=== PATIENT | male | born 1960 | race Caucasian/White ===

== ENCOUNTER 2020-01-26 06:34 | Day surgery (SDC) | payer MEDICAID ==
[2020-01-26] MEDS ORDERED: Midazolam 1 MG/ML 2 ML SDV ONE (07:26)
[2020-01-26] MEDS ORDERED: Propofol 200 MG/20 ML SDV ONE (07:26)
[2020-01-26] MEDS ORDERED: fentaNYL 100 MCG/2 ML SDV ONE (07:26)
[2020-01-26] MEDS ORDERED: Sodium Chloride 0.9% 1,000 ML IV SCH (07:30)
[2020-01-26 09:26] VITALS: BP 123/85; PULSE 89
--- NOTE | 2020-01-26 12:54 | PROC ---
DATE OF PROCEDURE: SURGEON: Al García MD INDICATIONS: Hever is a 59-year-old male who has been having abdominal pain to the point where he can hardly function. It is all the time. Often worse when he eats. It is across the entire abdomen. He comes in for an esophageal gastroduodenoscopy. The risks and benefits were explained, and the patient was taken to the OR. PROCEDURE IN DETAIL: Anesthesia was given by nurse computer support specialist. The Olympus 180 scope was used and was placed into the pharynx without difficulty and advanced under direct vision into the body of the stomach. The pylorus was identified and advanced into the 1st and 2nd part of the duodenum. Upon retraction of the tube, noted no duodenal erythema. The tube was brought back into the stomach, which revealed no abnormality. The tube was retroflexed into the fundus, which was unremarkable. Air was withdrawn from the stomach. The GE junction was identified. There was a hiatal hernia noted. The remainder of the esophagus was unremarkable and the vocal cords moved symmetrically. No obvious pathology noted. The tube was removed. The patient tolerated the procedure well. PREOPERATIVE DIAGNOSIS: Abdominal pain. POSTOPERATIVE DIAGNOSIS: Normal esophagus, stomach, small intestine, and vocal cords. No obvious pathology was noted throughout the entire evaluation. Other sources for the abdominal pain need to be sought. Al García MD /[id number]
== END 2020-01-26 09:30 | disposition home or self-care (01) ==
LOC: JP.SDS 06:34
PROVIDERS: ATTEND Internal Medicine
DX: R10.13 Epigastric pain (principal); K44.9 Diaphragmatic hernia without obstruction or gangrene; G47.33 Obstructive sleep apnea (adult) (pediatric); I12.9 Hypertensive chronic kidney disease with stage 1 through stage 4 chronic kidney disease, or unspecified chronic kidney disease; N18.9 Chronic kidney disease, unspecified
CPT/HCPCS: 43235; J2250; J2704; J3010; J7030

== ENCOUNTER 2023-03-27 11:25 | Inpatient (IN) | payer MEDICAID ==
[2023-03-27] MEDS: Sodium Chloride 0.9% 1,000 ML IV ONE ×2 (11:45→12:56)
[2023-03-27] MEDS: Sodium Chloride 0.9% 10 ML Syringe FLUSH PRN (11:52)
[2023-03-27 12:00] LABS: BASOPHILS PERCENT AUTO 0.2 % (0.1-1.3); EOSINOPHILS PERCENT AUTO 0.2 % (0.0-5.4); HEMATOCRIT 34.6 % (38.4-49.7); HEMOGLOBIN 11.4 g/dL (12.9-16.9); IMMATURE GRAN ABSOLUTE AUTO 0.07 K/uL (0.00-0.23); IMMATURE GRAN PERCENT AUTO 0.6 % (0.0-0.7); LYMPHOCYTES ABSOLUTE AUTO 0.53 K/uL (0.8-3.3); LYMPHOCYTES PERCENT AUTO 4.9 % (11.4-47.7); MEAN CORPUSCULAR HGB CONC 32.9 g/dL (31.6-35.5); MEAN CORPUSCULAR VOLUME 81.8 fL (81.4-99.0); MONOCYTES ABSOLUTE AUTO 0.05 K/uL (0.20-0.90); MONOCYTES PERCENT AUTO 0.5 % (3.3-12.6); NEUTROPHILS PERCENT AUTO 93.6 % (40.0-78.1); PLATELET COUNT,PLT 328 K/uL (130-375); RED BLOOD CELL COUNT 4.23 M/uL (4.14-5.76); WHITE BLOOD CELL COUNT,WBC 10.8 K/uL (3.2-11.0)
[2023-03-27 12:06] LABS: BASOPHILS ABSOLUTE AUTO 0.02 K/uL (0.00-0.10); EOSINOPHILS ABSOLUTE AUTO 0.02 K/uL (0.00-0.40)
[2023-03-27 12:22] LABS: A/G RATIO 0.3 (1.2-2.2); ALANINE AMINOTRANSFERASE,ALT 15 U/L (12-78); ALBUMIN 1.6 g/dL (3.4-5.0); ALKALINE PHOSPHATASE 36 U/L (46-116); ASPARTATE AMNIOTRANSFERASE,AST 21 U/L (15-37); BILIRUBIN TOTAL 0.4 mg/dL (0.2-1.0); BLOOD UREA NITROGEN,BUN 9 mg/dL (7-18); C-REACTIVE PROTEIN 12.44 mg/dL (<0.50); CARBON DIOXIDE,CO2 26 mmol/L (21-32); CHLORIDE,CL 92 mmol/L (100-108); CREATININE 1.3 mg/dL (0.8-1.3); EST CRCL DRUG DOSING (CG) 74.21 mL/min; ESTIMATED GFR 61 mL/min (>60); GLUCOSE RANDOM 100 mg/dL (74-106); PROTEIN TOTAL,TP 6.7 g/dL (6.4-8.2); SODIUM,NA 128 mmol/L (140-148)
[2023-03-27 12:24] LABS: ANION GAP 12.5 mmol/L (5.0-14.0); POTASSIUM,K 2.5 mmol/L (3.6-5.2)
[2023-03-27 12:24] LABS: APPEARANCE,URINE SLIGHTLY CLOUDY (CLEAR); BILIRUBIN,URINE SMALL (NEGATIVE); COLOR,URINE YELLOW (YELLOW); GLUCOSE,URINE NEGATIVE (NEGATIVE); KETONES,URINE NEGATIVE (NEGATIVE); LEUKOCYTE ESTERASE,URINE NEGATIVE (NEGATIVE); NITRITE,URINE NEGATIVE (NEGATIVE); OCCULT BLOOD,URINE SMALL (NEGATIVE); PH,URINE 5.5 (5.0-8.0); PROTEIN,URINE 100 mg/dL (NEGATIVE)
[2023-03-27 12:25] LABS: LACTIC ACID 1.2 mmol/L (0.4-2.0)
[2023-03-27] MEDS: fentaNYL 50 MCG/ML SDV IVPUSH ONE ×2 (12:36→13:27)
[2023-03-27 12:38] LABS: CORONAVIRUS COVID-19 NAA NEGATIVE (NEGATIVE); INFLUENZA A NAA POSITIVE (NEGATIVE); INFLUENZA B NAA NEGATIVE (NEGATIVE); RESPIRATORY SYNCYTIAL VIR NAA NEGATIVE (NEGATIVE)
[2023-03-27 12:49] LABS: AMORPHOUS SEDIMENT,URINE MANY; BACTERIA,URINE RARE; EPITHELIAL CELLS,URINE NOT SEEN; MUCUS,URINE NOT SEEN; RBC,URINE NOT SEEN (0-5); WBC,URINE 0-5 (0-5)
[2023-03-27] MEDS: Potassium Chloride 20 MEQ in Premix Bag 1 BAG IV ONE (13:02)
[2023-03-27] MEDS: Magnesium Sulfate/Water 2 GM in Premix Bag 1 BAG IV ONE (13:02)
[2023-03-27] MEDS: Metoclopramide 10 MG/2 ML SDV IVPUSH ONE (13:43)
[2023-03-27] MEDS: LORazepam 2 MG/ML SDV IVPUSH ONE (16:55)
[2023-03-27] MEDS: Piperacillin/Tazobactam 4.5 GM in Sodium Chloride 0.9% 100 ML IV ONE (18:11)
[2023-03-27 18:18] LABS: CALCIUM 7.3 mg/dL (8.5-10.1); CREATININE 1.4 mg/dL (0.8-1.3); EST CRCL DRUG DOSING (CG) 68.91 mL/min
[2023-03-27 18:19] LABS: ANION GAP 11.9 mmol/L (5.0-14.0); POTASSIUM,K 2.9 mmol/L (3.6-5.2)
[2023-03-27] MEDS ORDERED: Ondansetron 4 MG/2 ML SDV IV PRN (20:23)
[2023-03-27] MEDS ORDERED: Sennosides/Docusate Sodium 50-8.6 MG Tab PO PRN (20:23)
[2023-03-27] MEDS ORDERED: Ondansetron 4 MG Tab.DIS PO PRN (20:23)
[2023-03-27] MEDS ORDERED: Magnesium Hydroxide 400 MG/5 ML Susp 30 ML Cup PO PRN (20:23)
[2023-03-27] MEDS: cefTRIAXone 2 GM in Sodium Chloride 0.9% 50 ML IV ONE (21:43)
[2023-03-27] MEDS: Potassium Chloride 10 MEQ in Premix Bag 1 BAG IV SCH (22:03)
[2023-03-27] MEDS: Sodium Chloride 0.9% 1,000 ML IV SCH (22:04)
[2023-03-27] MEDS: Magnesium Sulfate/Water 2 GM in Premix Bag 1 BAG IV SCH (22:09)
[2023-03-27] MEDS: Lactobacillus Rhamnosus GG (Probiotic) Cap PO SCH (22:11)
[2023-03-27] MEDS: Oseltamivir 75 MG Cap PO SCH (22:12)
[2023-03-27] MEDS: Albuterol/Ipratropium 3.0-0.5 MG/3 ML Neb Soln NEB SCH (22:13)
[2023-03-28] MEDS: Piperacillin/Tazobactam 4.5 GM in Sodium Chloride 0.9% 100 ML IV SCH (00:47)
[2023-03-28] MEDS: Acetaminophen 325 MG Tab PO PRN (03:12)
[2023-03-28 05:13] LABS: HEMATOCRIT 34.9 % (38.4-49.7); HEMOGLOBIN 11.3 g/dL (12.9-16.9); MEAN CORPUSCULAR HEMOGLOBIN 27.2 pg (31.6-35.5); MEAN CORPUSCULAR HGB CONC 32.4 g/dL (31.6-35.5); MEAN CORPUSCULAR VOLUME 83.9 fL (81.4-99.0); RED BLOOD CELL COUNT 4.16 M/uL (4.14-5.76); WHITE BLOOD CELL COUNT,WBC 5.6 K/uL (3.2-11.0)
[2023-03-28 05:26] LABS: CALCIUM 7.1 mg/dL (8.5-10.1); CREATININE 1.2 mg/dL (0.8-1.3); EST CRCL DRUG DOSING (CG) 80.4 mL/min; MAGNESIUM 2.2 mg/dL (1.8-2.4); POTASSIUM,K 3.4 mmol/L (3.6-5.2)
[2023-03-28 05:40] LABS: ANION GAP 7.4 mmol/L (5.0-14.0)
[2023-03-28] MEDS: Pantoprazole 40 MG Tab.CR PO SCH (07:28)
[2023-03-28] MEDS: Enoxaparin 40 MG/0.4 ML Syringe SUBCUT SCH (08:28)
[2023-03-28] MEDS: Potassium Chloride 20 MEQ Tab.ER PO ONE (09:57)
[2023-03-28] MEDS: Albuterol/Ipratropium 3.0-0.5 MG/3 ML Neb Soln NEB SCH (10:40)
[2023-03-28] MEDS: Piperacillin/Tazobactam/Dext 4.5 GM in Premix Bag 1 BAG IV SCH (11:48)
[2023-03-28] MEDS ORDERED: Diazepam 5 MG Tab PO PRN (14:02)
[2023-03-28] MEDS ORDERED: Naloxone 0.4 MG/ML SDV IVPUSH PRN (15:04)
[2023-03-28] MEDS: Diazepam 5 MG Tab PO PRN (15:38)
[2023-03-28] MEDS: Morphine 4 MG/ML Syringe IVPUSH PRN (15:39)
[2023-03-28] MEDS: Pregabalin 100 MG Cap PO SCH (16:29)
[2023-03-28] MEDS: Piperacillin/Tazobactam/Dext 3.375 GM in Premix Bag 1 BAG IV SCH (17:15)
[2023-03-28] MEDS: Morphine 15 MG Tab PO PRN (19:46)
[2023-03-28] MEDS: Sodium Chloride 0.9% 10 ML Syringe FLUSH ONE (19:47)
[2023-03-28] MEDS: Formoterol/Mometasone 200-5 MCG 8.8 GM Inhaler IH SCH (20:10)
[2023-03-28] MEDS: atorvaSTATin 20 MG Tab PO SCH (20:11)
[2023-03-28] MEDS: traZODone 50 MG Tab PO SCH (20:13)
[2023-03-29 04:58] LABS: HEMATOCRIT 35.7 % (38.4-49.7); HEMOGLOBIN 11.4 g/dL (12.9-16.9); MEAN CORPUSCULAR HEMOGLOBIN 26.6 pg (31.6-35.5); MEAN CORPUSCULAR HGB CONC 31.9 g/dL (31.6-35.5); MEAN CORPUSCULAR VOLUME 83.4 fL (81.4-99.0); RED BLOOD CELL COUNT 4.28 M/uL (4.14-5.76); WHITE BLOOD CELL COUNT,WBC 3.6 K/uL (3.2-11.0)
[2023-03-29 05:20] LABS: C-REACTIVE PROTEIN 13.18 mg/dL (<0.50); CALCIUM 7.3 mg/dL (8.5-10.1); CREATININE 1.2 mg/dL (0.8-1.3); EST CRCL DRUG DOSING (CG) 80.4 mL/min; POTASSIUM,K 3.6 mmol/L (3.6-5.2)
[2023-03-29 05:32] LABS: ANION GAP 7.6 mmol/L (5.0-14.0)
[2023-03-29] MEDS ORDERED: Pantoprazole 40 MG Tab.CR PO SCH (07:30)
[2023-03-29] MEDS: Tiotropium Bromide 4 GM Inhalation Spray (2.5mcg/1 dose; 10 doses) INH SCH (07:48)
[2023-03-29] MEDS: amLODIPine 5 MG Tab PO SCH (08:14)
[2023-03-29] MEDS: Furosemide 40 MG Tab PO SCH (08:14)
[2023-03-29] MEDS: Potassium Chloride 20 MEQ Tab.ER PO ONE (09:12)
[2023-03-30] MEDS: Melatonin 3 MG Tab PO PRN (00:18)
[2023-03-30] MEDS: hydrOXYzine HCl 25 MG Tab PO PRN (07:59)
[2023-04-01] MEDS: cefTRIAXone 1 GM in Sodium Chloride 0.9% 50 ML IV SCH (13:59)
[2023-04-01] MEDS: Potassium Chloride 20 MEQ Tab.ER PO ONE (13:59)
[2023-04-01] MEDS: Furosemide 40 MG/4 ML VIAL IVPUSH SCH (20:14)
[2023-04-02 05:21] LABS: CALCIUM 7.3 mg/dL (8.5-10.1); CREATININE 1.2 mg/dL (0.8-1.3); EST CRCL DRUG DOSING (CG) 80.4 mL/min
[2023-04-02 05:31] LABS: ANION GAP 7.8 mmol/L (5.0-14.0); POTASSIUM,K 2.8 mmol/L (3.6-5.2)
[2023-04-02] MEDS: Potassium Chloride 20 MEQ Tab.ER PO ONE ×2 (06:14→11:16)
[2023-04-02] MEDS: cefTRIAXone 2 GM in Sodium Chloride 0.9% 50 ML IV SCH (10:12)
[2023-04-02 11:03] VITALS: BP 142/83; PULSE 81
== END 2023-04-02 11:30 | disposition home or self-care (01) | DRG 540 ==
LOC: JP.ED 11:25 → JP.MS 19:33
PROVIDERS: ADMIT Registered Nurse; ATTEND Hospitalist
DX: M86.8X7 Other osteomyelitis, ankle and foot (principal); E27.40 Unspecified adrenocortical insufficiency; L97.419 Non-pressure chronic ulcer of right heel and midfoot with unspecified severity; L97.429 Non-pressure chronic ulcer of left heel and midfoot with unspecified severity; M00.872 Arthritis due to other bacteria, left ankle and foot; M00.871 Arthritis due to other bacteria, right ankle and foot; J10.1 Influenza due to other identified influenza virus with other respiratory manifestations; L97.523 Non-pressure chronic ulcer of other part of left foot with necrosis of muscle; J44.9 Chronic obstructive pulmonary disease, unspecified; M54.40 Lumbago with sciatica, unspecified side; G89.29 Other chronic pain; B96.20 Unspecified Escherichia coli [E. coli] as the cause of diseases classified elsewhere; B96.4 Proteus (mirabilis) (morganii) as the cause of diseases classified elsewhere; M19.90 Unspecified osteoarthritis, unspecified site; Z96.649 Presence of unspecified artificial hip joint; I95.9 Hypotension, unspecified; I50.9 Heart failure, unspecified; E87.6 Hypokalemia; E83.42 Hypomagnesemia; I73.9 Peripheral vascular disease, unspecified; R09.02 Hypoxemia; Z88.8 Allergy status to other drugs, medicaments and biological substances; Z79.51 Long term (current) use of inhaled steroids; Z79.899 Other long term (current) drug therapy; Z98.1 Arthrodesis status; Z11.52 Encounter for screening for COVID-19; Z89.439 Acquired absence of unspecified foot
CPT/HCPCS: 0241U; 36415; 36569; 51702; 71045; 71045-26; 73700-LT; 76377; 80048; 80053; 80202; 81001; 83605; 83735; 84145; 85025; 85027; 86140; 87040; 87070; 87077; 87186; 87205; 94640; 96361; 96365; 96366; 96367; 96368; 96375; 96376; 99223; 99232; 99233; 99238; 99285; 99285-25; A9270-GY; C1751; J0696; J1650; J1940; J2060; J2270; J2543; J2765; J3010; J3370; J3475; J3480; J3490; J7030; J7050; J7620